=== PATIENT | female | born 1990 | race Caucasian/White ===

== ENCOUNTER 2021-06-01 21:43 | Outpatient (CLI) | payer MEDICAID, SELFPAY ==
[2021-06-01 21:50] VITALS: BMI 21.6
[2021-06-01 22:31] LABS: Microscopic, Urine URINE MICROSCOPIC (MICROSCOPIC)
[2021-06-01 22:34] VITALS: BMI 21.6
[2021-06-01 22:47] LABS: Appearance,Urine CLEAR (Clear); Bilirubin,Urine Negative (Negative); Blood, Urine Negative (Negative); Color,Urine YELLOW (Yellow); Glucose,Urine (UA) Negative (Negative); Ketones,Urine 3+ (Negative); Leukocyte Esterase,Urine Negative (Negative); Nitrate,Urine Negative (Negative); Protein,Urine 1+ (Negative); Specific Gravity, Urine >= 1.030 (1.005-1.030); Urobilinogen,Urine 0.2 EU/dl (0.2)
[2021-06-01 22:59] LABS: Benzodiazepines Screen,Urine Negative ng/ml (<200)
[2021-06-01 23:00] LABS: Amphetamine/Metha Screen,Urine Negative ng/ml (<1000); Barbiturates Screen,Urine Negative ng/ml (<200)
[2021-06-01 23:03] LABS: Bacteria,Urine Trace /lpf; Squamous Epithelial Cell,Urine Occasional #/hpf (0-5); WBC,Urine Occasional #/hpf (0-3)
[2021-06-01 23:04] LABS: Cocaine Screen,Urine Negative ng/ml (<300); Methadone Screen,Urine Negative ng/ml (<300)
[2021-06-01 23:05] LABS: Opiate Screen,Urine Negative ng/ml (<300)
[2021-06-01 23:06] LABS: Phencyclidine Screen,Urine Negative ng/ml (<25)
[2021-06-01 23:14] LABS: Cannabinoid Screen,Urine Positive ng/ml (<50)
== END 2021-06-02 00:42 | disposition home or self-care (01) ==
LOC: OBOUT 21:49 → OB 21:50
PROVIDERS: PCP Nurse Practitioner Obstetrics & Gynecology; Visit Provider Nurse Practitioner Obstetrics & Gynecology
DX: O47.03 False labor before 37 completed weeks of gestation, third trimester (principal); Z3A.30 30 weeks gestation of pregnancy; R11.2 Nausea with vomiting, unspecified
CPT/HCPCS: 59025; 80305; 81001; 94761; 96366; 96367; 96372; G0283; G0463; J2405

== ENCOUNTER → 2021-06-06 10:54 | Outpatient (CLI) | payer MEDICAID, SELFPAY ==
[2021-06-07 11:14] LABS: HIV Screen 4th Generation wRfx Non Reactive (Non Reactive); Hepatitis B Surface Antigen Negative (Negative); Hepatitis C Antibody <0.1 s/co ratio (0.0-0.9); Rapid Plasma Reagin Ab Titer Non Reactive (NonRea<1:1); Rubella Antibodies, IgG 1.86 index (Immune >0.99)
[2021-06-08 23:13] LABS: Neisseria gonorrhoeae, NAA Negative (Negative)
== END ==
PROVIDERS: Visit Provider Obstetrics & Gynecology
DX: Z34.90 Encounter for supervision of normal pregnancy, unspecified, unspecified trimester (principal)
CPT/HCPCS: 36415; 82951; 85025; 86592; 86703; 86762; 86850; 87340; 87380; 87491; 87591; G0432

== ENCOUNTER → 2021-06-10 13:49 | Outpatient (CLI) | payer MEDICAID, SELFPAY ==
--- NOTE | 2021-06-10 13:49 | US_ITS ---
PROCEDURE: US OB >= 14 WEEKS FETUS CLINICAL INDICATION: OB complete The patient is late to care, this is her 1st ultrasound exam, there has not know last LMP COMPARISON: No exams were available for comparison FINDINGS: Single viable intrauterine gestation. Cephalic position. Placenta: Anteriorplacenta grade 1. There is average amount fluid. The cervix appears satisfactory. Closed and measuring 3.7 cm in length. Complete survey performed and was unremarkable on the submitted images as in PACS. No discrete anomalies identified on survey imaging by technologist. Active fetus. Three-vessel cord with satisfactory umbilical cord insertion. 4- chamber heart noted. Survey of brain & ventricles Unremarkable. Face and neck survey unremarkable. Diaphragm and chest views unremarkable. Abdomen: Both kidneys noted and unremarkable. Stomach noted and satisfactory. Spine: Survey of the spine satisfactory with no anomalies identified nor imaged. Both arms and legs noted. Amniotic Fluid: Adequate. Maternal adnexa: No significant findings. Measurements: Average ultrasound age 30weeks 2days. Gestational Age 30weeks 2days Estimated due date by ultrasound age 1108/17/2021. Estimated weight 1,507g BPD = 30weeks 3days OFD = 30weeks 2days HC = 30weeks 2days AC = 30weeks FL = 30weeks 2days Growth Percentile= % Heart Rate = 144bpm Cerebellum = Humerus = 30weeks HC/AC is 1.07 CI is 0.77 FL/BPD is 0.76 FL/AC is 0.22 IMPRESSION: Single viable fetus in cephalic presentation with estimated age 30 weeks and 2 days Estimated due date by Ultrasound is 08/17/2021 Dictated by: Dr. Vasyl Mcguire MD 06/10/2021 15:14 Dr. Vasyl Mcguire MD in [place] 06/10/2021 15:14
== END ==
PROVIDERS: PCP Obstetrics & Gynecology; Visit Provider Obstetrics & Gynecology
DX: Z34.90 Encounter for supervision of normal pregnancy, unspecified, unspecified trimester (principal)
CPT/HCPCS: 76805

== ENCOUNTER 2021-08-10 06:11 | Inpatient (IN) | payer MEDICAID, SELFPAY ==
[2021-08-10] VITALS (19 sets, daily range): BP systolic 105–136; BP diastolic 55–95; PULSE 71–93; RESP 18–20; TEMP 36.5–37.3; O2SAT 98–100; BMI 23.0; BMI 23.9
[2021-08-10 07:20] LABS: Anion Gap 14.1 mEq/L (5-15); Blood Urea Nitrogen 9 mg/dl (7-17); Calcium 8.8 mg/dl (8.4-10.2); Carbon Dioxide 23 mmol/L (22.0-30.0); Chloride 100 mmol/L (98-107); Creatinine Clearance Estimated 190 mL/min (50-200); Estimated Glomerular Filt Rate 186 ml/min (>60); GFR (African American) 225 ML/MIN (>60); Glucose 126 mg/dl (74-100); Potassium 4.1 mmoL/L (3.5-5.1); Sodium 133 mmol/L (136-145)
[2021-08-10 07:26] LABS: Basophils % 0.1 % (0.1-2.0); Eosinophils % 0.1 % (0.1-12.0); Hematocrit 29.1 % (37.0-47.0); Hemoglobin 9.3 g/dL (12.2-16.2); Lymphocytes # 1.2 K/mm3 (0.7-4.5); Lymphocytes % 9.2 % (10-50); Mean Corpuscular Hemoglobin 30.1 pg (27.0-31.2); Mean Platelet Volume 9.5 fl (7.4-10.4); Monocytes # 0.3 K/mm3 (0.1-1.0); Monocytes % 2.3 % (1.7-9.3); Neutrophils # 11.5 K/mm3 (1.8-7.8); Neutrophils % 88.3 % (37.0-80.0); Platelet Count 277 K/mm3 (142-424); Red Cell Distribution Width 13.5 % (11.5-17.5); White Blood Count 13.1 K/mm3 (4.8-10.8)
[2021-08-10 07:28] LABS: MANUAL DIFFERENTIAL MANUAL DIFFERENTIAL (MANUAL DIFF)
--- NOTE | 2021-08-10 07:28 | HMH.PROC ---
[facility] Procedure Note Procedure Note:: I was called to labor and delivery to assist with intravenous access placement. The patient had given at home at about 2 AM. And I entered the patient's room the patient was alert and oriented x3 with her at bedside. The patient's child was in the warmer and doing well. The patient still had not delivered her placenta. The nurses informed me that numerous attempts at peripheral IV placement had failed. Subsequently, I attempted to place peripheral external jugular vein IVs myself. 2 attempts failed. Therefore, verbal consent was obtained for central line placement. I placed a 7 Yi triple-lumen central line in the patient's right femoral vein under ultrasound guidance. This was done according to standard technique. It was done under aseptic conditions. Patient tolerated the procedure well. All 3 lines cassia blood and flushed easily. The line was secured in place with sutures. Dressing was applied. The executive compensation analyst is now at the bedside. When I left the patient's room the patient was still alert and oriented and conversant.
[2021-08-10 07:42] LABS: Coronavirus 19, PCR Not Detected (NotDetected); Influenza A, PCR Not Detected (NotDetected); Influenza B, PCR Not Detected (NotDetected)
[2021-08-10 07:47] LABS: Lymphocytes % 9 % (10-50); Monocytes % 2 % (2-9); Neutrophils % 89 % (42-76); Total Cells Counted 100
[2021-08-10 07:48] LABS: Platelet Estimate Normal; RBC Morphology Normal
--- NOTE | 2021-08-10 08:47 | HMH.HP ---
*Admission Date: 08/10/21 *Chief complaint: s/p vaginal delivery at home *History of present illness: 31 yo presented to [facility] after vaginal delivery at home Placenta intact upon arrival Patient reported that she delivered the infant into a trash can around 3:30 am She cut the umbilical cord but did not tie it off on either end Presentation to the hospital was delayed by 3 hours because her was at work Upon arrival she was pale in appearance and visibly uncomfortable Maternal and assessments were begun simultaneously After several failed attempts to obtain peripheral IV access on mother, the ED physician was called for assistance Femoral access was successfully obtained The umbilical cord was clamped with a debbie clamp and outward traction applied Placenta delivered easily and was intact upon inspection Bimaual exam was performed to ensure no retained placenta complicated by limited care EGA 39 0/7 weeks today based on SHIRAZ 08/17/21 which was calculated from measurements obtained during 30 week ultrasound She had one visit with a room manager at [place] in April and one visit at [facility] in May At that time, labs were drawn and a ultrasound was scheduled Ultrasound was performed on 06/10/21, which showed no anatomic anomalies and a 3VC She did not follow back up with our office for care and did not respond to numerous phone calls from the office after no show appointment labs: O positive, antibody negative, RPR NR, HBsAg negative, HCV negative, HIV negative, GC/CT negative, rubella immune UDS +THC Initial CBC was not drawn, but was ordered [facility] History I have reviewed the patient's past medical history: Yes *Have you ever received a pneumonia vaccine?: No *Have you received a flu vaccine this season?: No Other Medical History: Reports: Anemia Other Surgeries: No: Amputation: No Fractures: No - *Social History Smoking Status: Never smoker Alcohol Intake: never Substance Use Type: marijuana *Occupational Status:: unemployed *Travel in the last 8 weeks: None Family Hx:: Diabetes, Heart Attack, Anemia, Substance abuse : 8 Para: 8 A: 0 Review of Systems - Review of Systems Review of systems:: pertinent systems reviewed and negative unless documented below - Constitutional Denies chills, Denies fever(s) - *Cardiovascular Denies chest pain - *Respiratory Denies cough, Denies shortness of breath Meds Home Medications Medication Instructions Recorded Confirmed Type vits no.126-ferrous fum tab PO DAILY tab 06/06/21 History 28 mg iron-folic acid 800 mcg tablet Allergies Allergy/AdvReac Type Severity Reaction Status Date / Time No Known Allergies Allergy Verified 06/06/21 10:00 Exam Vital signs and Labs for Last 24 Hours: Laboratory Results - last 24 hr 08/10/21 06:35: WBC 13.1 H, RBC 3.10 L, Hgb 9.3 L, Hct 29.1 L, MCV 94.0, MCH 30.1, MCHC 32.0, RDW 13.5, Plt Count 277, MPV 9.5, Neut % (Auto) 88.3 H, Lymph % (Auto) 9.2 L, Weston % (Auto) 2.3, Eos % (Auto) 0.1, Baso % (Auto) 0.1, Neut # (Auto) 11.5 H, Lymph # (Auto) 1.2, Weston # (Auto) 0.3, Eos # (Auto) 0.0, Baso # (Auto) 0.0, Total Counted 100, Neutrophils % (Manual) 89 H, Lymphocytes % (Manual) 9 L, Monocytes % (Manual) 2, Platelet Estimate Normal, RBC Morphology Normal 08/10/21 06:35: Blood Type O Positive, Antibody Screen Negative, Crossmatch (AHG) See Detail 08/10/21 06:46: Sodium 133 L, Potassium 4.1, Chloride 100, Carbon Dioxide 23, Anion Gap 14.1, BUN 9, Creatinine 0.40 L, Estimated Creat Clear 190, Estimated GFR 186, Est GFR ( Amer) 225, Glucose 126 H, Calcium 8.8 08/10/21 07:26: SARS-CoV-2 (PCR) Not detected, Influenza A Untype (PCR) Not detected, Influenza Type B (PCR) Not detected I & O for Last 24 hours: Intake & Output 08/07/21 08/08/21 08/09/21 08/10/21 11:59 11:59 11:59 11:59 Weight 130 lb - Constitutio
[2021-08-10 10:24] LABS: Microscopic, Urine URINE MICROSCOPIC (MICROSCOPIC)
[2021-08-10 10:26] LABS: Appearance,Urine CLEAR (Clear); Blood, Urine TRACE-I (Negative); Color,Urine YELLOW (Yellow); Glucose,Urine (UA) Negative (Negative); Ketones,Urine 3+ (Negative); Leukocyte Esterase,Urine Negative (Negative); Nitrate,Urine Negative (Negative); Protein,Urine TRACE (Negative); Specific Gravity, Urine >= 1.030 (1.005-1.030); Urobilinogen,Urine 0.2 EU/dl (0.2)
[2021-08-10 10:29] LABS: Amphetamine/Metha Screen,Urine Negative ng/ml (<1000)
[2021-08-10 10:30] LABS: Barbiturates Screen,Urine Negative ng/ml (<200); Benzodiazepines Screen,Urine Negative ng/ml (<200)
[2021-08-10 10:31] LABS: Cannabinoid Screen,Urine Positive ng/ml (<50)
[2021-08-10 10:32] LABS: Cocaine Screen,Urine Negative ng/ml (<300); Methadone Screen,Urine Negative ng/ml (<300)
[2021-08-10 10:33] LABS: Opiate Screen,Urine Negative ng/ml (<300)
[2021-08-10 10:34] LABS: Phencyclidine Screen,Urine Negative ng/ml (<25)
--- NOTE | 2021-08-10 10:37 | HMH.PROC ---
[facility] Procedure Note Procedure Note:: PLACENTA DELIVERY: The patient arrived at [facility] after a vaginal delivery at home She was bleeding moderately and placenta was still inside After venous access was obtained, attention was turned to the placenta She was prepped and draped A debbie clamp was placed on the umbilical cord and gentle downward traction was applied The placenta was delivered, intact, without complication No vulvar, vaginal or cervical lacerations present upon examination Blood loss associated with placental delivery < 100cc
[2021-08-10 10:44] LABS: Bilirubin,Urine 1+ (Negative)
--- NOTE | 2021-08-10 11:17 | SW/DCPLANNER ---
Addendum entered by Adrienne Madsen 08/17/21 10:26: I have faxed this patients cord screen to [place] with [employer]. Addendum entered by Adrienne Madsen 08/11/21 13:50: ID# [id number] did meet criteria per Central Intake and will be investigated within 24 hours. Conduit Helper for case: Bronwyn Portillo Addendum entered by Adrienne Madsen 08/11/21 09:53: ID# [id number] did NOT meet criteria. I have called and updated Central Intake that per infants nurse (Coni) is beginning to score. Infants score is at 6: tremors, increased muscle tone, poor feeding, vomiting/diarrhea. New ID# is [id number]. I will follow up with Central Intake regarding new ID# this afternoon. Original Note: I received a referral for this patient regarding: two visits/late care/THC positive. Patient had two visits: [facility] in April and [facility] on 06/01/21 (positive for THC) and patient was positive on admission 08/10/21. Patient stated that she did not find out she was till April 2021. Patient delivered male (Ayden Olivarez) at home today in the [facility] per Dr Simmons. Patient did not arrive to [facility] several hours after delivery: due to infants father being at work. Infants father (Will Olivarez 01/11/89) was present at the time of my visit. Patient stated that herself, Will, infant and other children (7) will reside at [address] [place] [address] in [place] [address]. Patients contact number is [phone]. Patients other children: Helena [facility] 10/09/06, Jazmine [facility] 12/06/07, Sharri [facility] 10/04/09, Chitra [facility] 01/14/12, Codie [facility] 08/01/13, Anderson [facility] 04/18/16 and Sanna [facility] 05/20/19 have no past Social Service involvement per patient. Patient stated that she is not established with [facility] but knows how to sign up for services if needed. Patient stated that she has everything she needs at home for including: crib, carseat, clothing, diapers and will be . Patient admits to using THC but does elaborate on reasoning. Patient could potentially discharge on Sunday08/12/21 pending no setbacks. I have reported this situation to Central Intake: ID# [id number]. I will follow up with Central Intake once report is reviewed.
[2021-08-10 12:25] LABS: Hematocrit 23.4 % (37.0-47.0)
[2021-08-10 12:32] LABS: Hemoglobin 7.9 g/dL (12.2-16.2)
[2021-08-10 14:19] LABS: POC Glucose,Bedside 73 (70-110)
[2021-08-10 18:18] LABS: Hematocrit 28.2 % (37.0-47.0)
[2021-08-10 18:46] LABS: Hemoglobin 9.5 g/dL (12.2-16.2)
[2021-08-11 06:49] LABS: Hematocrit 26.5 % (37.0-47.0); Hemoglobin 8.7 g/dL (12.2-16.2)
--- NOTE | 2021-08-11 13:41 | P.PN_ITS ---
Internal Medicine - PN: Subj *Date: 08/11/21 *Time: 13:41 Interval history: PPD #1 vaginal delivery at home complicated by excessive blood loss and delayed delivery of placenta transfusion 2 units packed red cells post-transfusion Hgb 8.7 no complaints today denies chest pain, shortness of breath or dizziness Exam Vital signs and Labs for Last 24 Hours: Temp Pulse Resp BP Pulse Ox 99.1 F 81 18 121/60 100 08/10/21 16:58 08/10/21 16:58 08/10/21 16:58 08/10/21 16:58 08/10/21 16:58 Laboratory Results - last 24 hr 08/10/21 06:35: Blood Type O Positive, Antibody Screen Negative, Crossmatch (AHG) See Detail 08/10/21 06:55: POC Glucose 73 08/10/21 18:00: Hgb 9.5 L D, Hct 28.2 L 08/11/21 06:00: Hgb 8.7 L, Hct 26.5 L I & O for Last 24 hours: Intake & Output 08/09/21 08/10/21 08/11/21 08/12/21 11:59 11:59 11:59 11:59 Intake Total 2750 / 2750 Output Total 3050 / 3050 Balance -300 / -300 Weight 135 lb Narrative: CONSTITUTIONAL: no acute distress HEENT: mucous membranes moist PULMONARY: breathing unlabored without audible wheezes CV: no tachycardia or visible JVD; normal LE peripheral pulses ABD: soft, NT/ND, no guarding : fundus firm below umbilicus SKIN: no visible rash or lesions EXT: no edema LEs NEURO: alert/oriented, no altered mental status PSYCH: appropriate mood and demeanor Assessment and Plan (1) Vaginal delivery Status: Acute Category: Medical Code(s): O80 - Encounter for full-term uncomplicated delivery (2) Late care Status: Acute Category: Medical Code(s): O09.30 - Supervision of with insufficient care, unspecified trimester (3) Grand multiparity Status: Acute Category: Medical Code(s): Z64.1 - Problems related to mul tiparity (4) Anemia due to acute blood loss Status: Acute Category: Medical Code(s): D62 - Acute posthemorrhagic anemia (5) Positive urine drug screen Problem details: THC Status: Acute Category: Medical Code(s): R82.5 - Elevated urine levels of drugs, medicaments and biological substances - Assessment and plan all Dx Assessment and Plan for all problems:: Routine care Anticipate discharge home tomorrow
[2021-08-11 20:23] VITALS: BP 114/65; PULSE 95; RESP 18; TEMP 37.1; O2SAT 96
[2021-08-12 04:22] VITALS: BP 101/61; PULSE 68; RESP 18; TEMP 36.6; O2SAT 98
[2021-08-12 08:30] VITALS: BP 120/70; PULSE 81; RESP 18; TEMP 36.5; O2SAT 99
--- NOTE | 2021-08-12 12:28 | HMH.DCSUM ---
General - General Admission date:: 08/10/21 Discharge date: 08/12/21 HPI HPI: 31 yo presented to [facility] after vaginal delivery at home Placenta intact upon arrival Patient reported that she delivered the infant into a trash can around 3:30 am She cut the umbilical cord but did not tie it off on either end Presentation to the hospital was delayed by 3 hours because her was at work Upon arrival she was pale in appearance and visibly uncomfortable Maternal and assessments were begun simultaneously After several failed attempts to obtain peripheral IV access on mother, the ED physician was called for assistance Femoral access was successfully obtained The umbilical cord was clamped with a debbie clamp and outward traction applied Placenta delivered easily and was intact upon inspection Bimaual exam was performed to ensure no retained placenta complicated by limited care EGA 39 0/7 weeks today based on SHIRAZ 08/17/21 which was calculated from measurements obtained during 30 week ultrasound She had one visit with a chainstitch zipper setter at [place] in April and one visit at [facility] in May At that time, labs were drawn and a ultrasound was scheduled Ultrasound was performed on 06/10/21, which showed no anatomic anomalies and a 3VC She did not follow back up with our office for care and did not respond to numerous phone calls from the office after no show appointment labs: O positive, antibody negative, RPR NR, HBsAg negative, HCV negative, HIV negative, GC/CT negative, rubella immune UDS +THC Initial CBC was not drawn, but was ordered Hospital Course Hospital Course: moderate anemia with uncertain blood loss due to home delivery and delay in presentation she was transfused 2 units packed red cells post-transfusion hgb 8.4 care management and SS consult obtained She is discharged home on PPD #2 in stable condition She is tolerating regular diet, ambulating and voiding without difficulty Rhogam Administration: Not Indicated Objective Vital signs: Temp Pulse Resp BP Pulse Ox 97.8 F 68 18 101/61 L 98 08/12/21 04:22 08/12/21 04:22 08/12/21 04:22 08/12/21 04:22 08/12/21 04:22 Narrative: CONSTITUTIONAL: no acute distress HEENT: mucous membranes moist PULMONARY: breathing unlabored without audible wheezes CV: no tachycardia or visible JVD; normal LE peripheral pulses ABD: soft, NT/ND, no guarding : fundus firm at/below umbilicus SKIN: no visible rash or lesions EXT: 1+ edema LEs NEURO: alert/oriented, no altered mental status PSYCH: appropriate mood and demeanor DS: Diagnosis - Discharge Diagnosis (1) Vaginal delivery Status: Acute (2) Late care Status: Acute (3) Grand multiparity Status: Acute (4) Anemia due to acute blood loss Status: Acute (5) Positive urine drug screen Status: Acute Problem details: THC Discharge Plan - Patient Discharge Instructions ACTIVITY: Continue current activity DIET: regular diet Additional Instructions: No heavy lifting and no strenuous activity. Patient Instructions: Depression, Hemorrhage, DI for Labor and Delivery, Vaginal , DI for Pre-eclampsia, DI for Central Line Catheter Removal, [facility] Post Discharge Instructions, Preventing the Spread of Coronavirus Discharge Instructions - Follow up Plan Follow up with: Leslie Simmons MD [Staff Physician] - Disposition: Home, Self-Care Condition at discharge:: Stable Home Medications: Home Medications Medication Instructions Recorded Confirmed Type vits no.126-ferrous fum 1 tab PO DAILY tab 06/06/21 08/10/21 History 28 mg iron-folic acid 800 mcg tablet Ferrous Sulfate [Ferrous Sulfate 325 mg PO BID #60 tab 08/12/21 Rx 325mg Tab] Prescriptions/Medication Reconciliation: New Acetaminophen [Acetaminophen 325mg
--- NOTE | 2021-08-12 13:00 | SW/DCPLANNER ---
FIRE CHIEF'S AIDEREECE WITH [facility] CAME TO SEE PATIENT AND INFANT... A PREVENTION PLAN WAS ESTABLISHED AND CAN RETURN HOME WITH MOTHER WITH DETAILED STIPULATIONS IN THE PLAN.. PATIENT IS GOING TO DISCHARGE TODAY BUT NOT SURE IF WILL SINCE IS STILL SCORING.. SEE PREVENTION PLAN ON PATIENTS MEDICAL CHART FOR THE COMPLETED PLAN...
== END 2021-08-12 14:00 | disposition home or self-care (01) | DRG 769 ==
PROVIDERS: Nurse Practitioner Obstetrics & Gynecology; Admitting Provider Obstetrics & Gynecology; Visit Provider Obstetrics & Gynecology
DX: D62 Acute posthemorrhagic anemia (principal); O90.81 Anemia of the puerperium; Z39.0 Encounter for care and examination of mother immediately after delivery
CPT/HCPCS: 36556; 59414; 80048; 80305; 81001; 82962; 85007; 85014; 85018; 85025; 86850; 88307; 94761; C1751; C9803; G0283; J0290; P9016; U0003; U0005